=== PATIENT | female | born 1950 | race Caucasian/White ===

== ENCOUNTER 2022-10-27 12:15 | Day surgery (SDC) | payer MEDICARE ==
[2022-10-27] MEDS ORDERED: BUPIVACAINE 0.5% VIAL IJ ONE (12:16)
[2022-10-27] MEDS ORDERED: Depo-Medrol 40 MG/ML IM ONE (12:16)
[2022-10-27] MEDS ORDERED: LIDOCAINE HCL 1% 50 MG/5 ML VL PF IJ ONE (12:16)
[2022-10-27] MEDS ORDERED: Lactated Ringers 1,000 ML IV ONE (14:37)
[2022-10-27] MEDS ORDERED: DIPRIVAN 200 MG/20 ML IV ONE (14:39)
[2022-10-27] MEDS ORDERED: Xylocaine-Mpf 2% 5 Ml Vial ONE (14:46)
--- NOTE | 2022-10-27 17:00 | XRAY ---
Indication: Right SI joint injection. Intraoperative fluoroscopy provided for 14 seconds. 2 digital spot image submitted for interpretation demonstrates posterior needle tip projecting over the expected right SI joint. Correlate with intraoperative findings/report.
--- NOTE | 2022-10-27 17:13 | XRAY ---
14 seconds of fluoroscopy was used in surgery for a right sacroiliac joint injection.
== END 2022-10-27 15:15 | disposition home or self-care (01) ==
LOC: SDC-PAIN 12:15
PROVIDERS: ATTEND Psychiatry & Neurology Pain Medicine
DX: M46.1 Sacroiliitis, not elsewhere classified (principal); Z79.899 Other long term (current) drug therapy
CPT/HCPCS: 27096; 72170; 77002; G0260; J1030; J2001; J2704

== ENCOUNTER 2023-05-04 11:05 | Day surgery (SDC) | payer MEDICARE ==
[2023-05-04] MEDS ORDERED: Decadron 4 MG INJ IV ONE (11:06)
[2023-05-04] MEDS ORDERED: XYLOCAINE-MPF 1% 5ML SDV IJ ONE (11:06)
[2023-05-04] MEDS ORDERED: BUPIVACAINE 0.5% VIAL IJ ONE (11:06)
[2023-05-04] MEDS ORDERED: Versed 2 MG/2 ML Injection ONE (11:58)
[2023-05-04] MEDS ORDERED: DIPRIVAN 200 MG/20 ML IV ONE (13:04)
[2023-05-04] MEDS ORDERED: Lactated Ringers 1,000 ML IV ONE (14:10)
--- NOTE | 2023-05-04 14:42 | XRAY ---
Indication: Right C4-C6 RFA. Intraoperative fluoroscopy provided for 28 seconds. 5 digital spot image submitted for interpretation demonstrates posterior needle tips projecting over the expected right C4-C6 nerve roots. Correlate with intraoperative findings/report.
--- NOTE | 2023-05-04 14:45 | XRAY ---
28 seconds of fluoroscopy was used in surgery for a right C4-C6 RFA.
== END 2023-05-04 13:50 | disposition home or self-care (01) ==
LOC: SDC-PAIN 11:05
PROVIDERS: ATTEND Psychiatry & Neurology Pain Medicine
DX: M47.812 Spondylosis without myelopathy or radiculopathy, cervical region (principal)
CPT/HCPCS: 64633; 64634; 72040; 77002; 99100; J1100; J2250; J2704